=== PATIENT | female | born 1970 | race Two or more races ===

== ENCOUNTER 2016-06-13 21:17 | Emergency (ER) | payer SELFPAY ==
[~2016-06-13] VITALS: Ht 149.9 cm; Wt 52.2 kg
--- NOTE | 2016-06-13 21:21 | NUR ---
PT BIBRA TO ER BED 15 ACC[address] PD TO ER BED 15. PER REPORT, AGITATION AND BIZZARE BEHAVIOR IN FRONT OF A STORE. ON RESTRAINT HISTORIC SITE ADMINISTRATOR. PLACED ON MONITOR. AWAITING MD GILBERT.
--- NOTE | 2016-06-13 21:47 | NUR ---
BRISA LEI AT BEDSIDE FOR EVAL.
--- NOTE | 2016-06-13 21:54 | NUR ---
MERCHANDISING CONSULTANT AT BEDSIDE FOR BLOOD DRAW.
[2016-06-13 22:02] LABS: BASOPHILS # (AUTO) 0.1 /CMM (0.0-0.2); BASOPHILS % (AUTO) 0.6 % (0.0-2.0); EOSINOPHILS % (AUTO) 0.4 % (0.0-6.0); HEMATOCRIT 41 % (33-45); HEMOGLOBIN 13.8 g/dL (11.5-14.8); LYMPHOCYTES # (AUTO) 1.8 /CMM (0.8-4.8); LYMPHOCYTES % (AUTO) 17.3 % (20.0-44.0); MEAN CORPUSCULAR HEMOGLOBIN 30 PG (26.0-33.0); MEAN CORPUSCULAR HGB CONC 34 g/dl (31.0-36.0); MEAN CORPUSCULAR VOLUME 88 fL (82-100); MONOCYTES # (AUTO) 0.9 /CMM (0.1-1.30); MONOCYTES % (AUTO) 8.8 % (2.0-12.0); NEUTROPHILS # (AUTO) 7.6 /CMM (1.8-8.9); NEUTROPHILS % (AUTO) 72.9 % (43.0-81.0); PLATELET COUNT (AUTO) 321 /CMM (150-450); RDW COEFFICIENT OF VARIATION 14.3 (11.5-15.0); RED BLOOD CELL COUNT(AUTO) 4.65 MIL/uL (4.0-5.2); WHITE BLOOD COUNT (AUTO) 10.4 K/uL (4.3-11.0)
[2016-06-13 22:12] LABS: CALCIUM, SERUM 9.1 mg/dL (8.5-10.1); CARBON DIOXIDE 23 mmol/L (21-32); CHLORIDE 107 mmol/L (98-107); GFR 60 mL/min (>60); GLUCOSE 94 mg/dL (74-106); POTASSIUM 3.8 mmol/L (3.5-5.1); SODIUM SERUM 143 mmol/L (136-145); UREA NITROGEN, BLOOD 24 mg/dL (7-18)
[2016-06-13 22:22] LABS: ALANINE AMINOTRANSFERASE 27 U/L (12-78); ALBUMIN 4.1 g/dL (3.4-5.0); ALKALINE PHOSPHATASE 54 U/L (46-116); ASPARTATE AMINOTRANSFERASE 28 U/L (15-37); BILIRUBIN,DIRECT 0.1 mg/dL (0.0-0.2); BILIRUBIN,TOTAL 0.7 mg/dL (0.2-1.0); TOTAL PROTEIN, SERUM 7.6 g/dL (6.4-8.2)
[2016-06-13 22:23] LABS: ACETAMINOPHEN 0 ug/ml (10-30); ALCOHOL, BLOOD < 3 mg/dL (0-0); SALICYLATE 0.7 mg/dL (2.8-20.0)
[2016-06-13 23:12] LABS: CANNABINOID, URINE NEGATIVE (NEGATIVE); PHENCYCLIDINE SCREEN,URINE NEGATIVE (NEGATIVE)
[2016-06-13 23:15] LABS: APPEARANCE,URINE CLEAR (CLEAR); BILIRUBIN,URINE NEGATIVE (NEGATIVE); BLOOD, URINE NEGATIVE Ery/uL (NEGATIVE); COLOR,URINE YELLOW (YELLOW); KETONES,URINE NEGATIVE (NEGATIVE); LEUKOCYTE ESTERASE ,URINE NEGATIVE (NEGATIVE); NITRITE, URINE NEGATIVE (NEGATIVE); PH,URINE 5.5 (5.0-8.0); PROTEIN,URINE TRACE mg/dl (NEGATIVE); UGLUCOSE NEGATIVE (NEGATIVE); UROBILINOGEN,URINE 0.2 EU/dL (0.2)
--- NOTE | 2016-06-13 23:16 | NUR ---
REPORT TO CHARGE NURSE ALLEN FOR [facility].
[2016-06-13] MEDS ORDERED: LORAZEPAM INJ 2 MG/ML VIAL ONE (23:26)
[2016-06-13] MEDS ORDERED: WATER FOR INJECTION,STERILE 10 ML ONE (23:29)
[2016-06-13] MEDS ORDERED: OLANZAPINE 10 MG VIAL IM ONE ×3 (23:29→23:30)
[2016-06-13] MEDS ORDERED: MIDAZOLAM HCL 2 MG/2ML VIAL IM ONE (23:30)
[2016-06-13] MEDS ORDERED: LORAZEPAM INJ 2 MG/ML VIAL IM ONE (23:30)
[2016-06-13 23:34] LABS: ADD URINE CULTURE NO; BACTERIA,URINE Rare /HPF (None Seen); RBC,URINE 0-2 /HPF (0-2); SQUAMOUS EPITHELIAL CELL,UR Moderate /HPF (None Seen)
--- NOTE | 2016-06-13 23:36 | NUR ---
MEDICATED ORDERED AFTER PT STARTED YELLING, SCREAMING AND TALKING TO SELF. PLACED ON MONITOR.
--- NOTE | 2016-06-14 01:06 | NUR ---
RESTING WITH NO S/S OF DISTRESS. RESP EVEN AND UNALBORED. STILL ON MONITOR.
--- NOTE | 2016-06-14 02:18 | NUR ---
NO NEW DISTRESS NOTED AT THIS TIME. RESP EVEN AND UNLABORED.
--- NOTE | 2016-06-14 04:08 | NUR ---
HELPED WITH REPOSITIONING. RESP EVEN AND UNLABORED. STILL MONITORED CLOSELY
[2016-06-14 05:22] VITALS: BP 118/74
--- NOTE | 2016-06-14 05:23 | NUR ---
REASSESSED AND REMAINS IN NO DISTRESS AT THIS TIME. RESP EVEN AND UNLABORED.
--- NOTE | 2016-06-14 05:47 | NUR ---
AWAKE, ambulatory with a steady gait. DENIES SI/HI OR ANY OTHER SX'S AT THIS TIME. Patient discharged to home in stable condition. Written and verbal after care instructions given. Patient verbalizes understanding of instruction.
== END 2016-06-14 05:48 | disposition home or self-care (01) ==
LOC: ER 21:20
DX: F15.10 Other stimulant abuse, uncomplicated (principal); F20.9 Schizophrenia, unspecified; F31.9 Bipolar disorder, unspecified
CPT/HCPCS: 36415; 80048-TC; 80076-TC; 80305; 81000-TC; 85025-TC; A4606; G0480; G6039-TC; J2060; J3490; Z7610